=== PATIENT | male | born 1985 | race Caucasian/White ===

== ENCOUNTER 2016-04-29 17:33 | Emergency (ER) | payer MEDICAID ==
[~2016-04-29] VITALS: Ht 175.3 cm; Wt 112.0 kg
[2016-04-29 17:33] VITALS: BP 141/86; PULSE 118; RESP 18; TEMP 100.2; O2SAT 97
[2016-04-29] MEDS ORDERED: ACETAMINOPHEN 500 MG TABLET PO ONE (18:15)
[2016-04-29] MEDS ORDERED: ALBUTEROL SULFATE 0.083% 2.5 MG/3 ML VIAL.NEB INH ONE (18:15)
[2016-04-29] MEDS ORDERED: AMOXICILLIN/CLAVULANATE POTASSIUM 875 MG TABLET PO ONE (18:15)
[2016-04-29 18:30] VITALS: BP 132/71; PULSE 75; RESP 18; TEMP 99.7; O2SAT 99
== END 2016-04-29 18:30 | disposition home or self-care (01) ==
LOC: SED 17:33
DX: J20.9 Acute bronchitis, unspecified (principal); R11.2 Nausea with vomiting, unspecified; R19.7 Diarrhea, unspecified; J45.909 Unspecified asthma, uncomplicated; I10 Essential (primary) hypertension; Z88.8 Allergy status to other drugs, medicaments and biological substances
CPT/HCPCS: 94640; 99283